=== PATIENT | female | born 1930 | race Caucasian/White ===

== ENCOUNTER 2017-03-30 10:07 | Emergency (ER) | payer MEDICARE, OTHER ==
[~2017-03-30] VITALS: Ht 177.8 cm; Wt 92.0 kg
[~2017-03-30 10:07] MED LIST: AMLO2.5T PO; BENZ100 PO; CETI10 PO; ERGO2000 PO; MEDOXOMIL; METF1000 PO; NEXI40CA PO; ROPI2TAB; ZITH250T PO
[2017-03-30 10:14] VITALS: BP 180/78; PULSE 88; RESP 18; TEMP 98.2; O2SAT 95
--- NOTE | 2017-03-30 10:37 | PD ---
HPI Chief Complaint: Cold / Flu Symptoms Time Seen by Provider: 10:20 Travel History International Travel<30 days: No Contact w/Intl Traveler<30days: No Traveled to known affect area: No History of Present Illness HPI This 86-year-old female is complaining of cough. She says she been coughing for the past 2 weeks. She was bringing up some green phlegm she is yellow phlegm. She has had pneumonia in the past. She stopped smoking 34 years ago. She has been short of breath. She is on medication for hypertension and diabetes. She thinks it's and they'll fill if she takes 20 years ago she had breast cancer that was treated with chemotherapy and surgery. Her son is with her and says that he noted she was wheezing the other day. She is not aware of any fever. PFSH Past Medical History Hx Anticoagulant Therapy: No Cancer: Yes (left breast) Cardiovascular Problems: Yes (HTN) High Cholesterol: Yes Diabetes: Yes (TYPE 2 ) Diminished Hearing: No Hypertension: Yes ?: Not Past Surgical History Tonsillectomy: Yes Other Surgery: Yes (left mastectomy) Social History Alcohol Use: Yes (occ) Tobacco Use: No Substance Use: No Allergies-Medications (Allergen,Severity, Reaction): Coded Allergies: No Known Allergies (Verified Adverse Reaction, Unknown, 03/30/17) Reported Meds & Prescriptions Reported Meds & Active Scripts Active Review of Systems General / Constitutional: No: Fever, Chills Eyes: No: Diploplia, Blurred Vision HENT: No: Headaches Cardiovascular: No: Chest Pain or Discomfort, Palpitations Respiratory: Positive: Cough, Shortness of Breath, Wheezing Gastrointestinal: No: Vomiting Genitourinary: No: Urgency, Frequency Skin: No Rash Neurologic: Positive: Weakness Physical Exam Narrative GENERAL: He developed female SKIN: Focused skin assessment warm/dry. HEAD: Atraumatic. Normocephalic. EYES: Pupils equal and round. No scleral icterus. No injection or drainage. ENT: No nasal bleeding or discharge. Mucous membranes pink and moist. NECK: Trachea midline. No JVD. CARDIOVASCULAR: Regular rate and rhythm. No murmur appreciated. RESPIRATORY: No accessory muscle use. There are some scattered bilateral wheezes. Breath sounds equal bilaterally. GASTROINTESTINAL: Abdomen soft, non-tender, nondistended. Hepatic and splenic margins not palpable. MUSCULOSKELETAL: No obvious deformities. No clubbing. No cyanosis. No edema. NEUROLOGICAL: Awake and alert. No obvious cranial nerve deficits. Motor grossly within normal limits. Normal speech. PSYCHIATRIC: Appropriate mood and affect; insight and judgment normal. Data Data Last Documented VS Vital Signs Date Time Temp Pulse Resp B/P (MAP) Pulse Ox O2 Delivery O2 Flow Rate FiO2 03/30/17 11:30 84 16 159/83 (108) 96 Room Air 03/30/17 10:49 95 03/30/17 10:14 98.2 Orders Orders Complete Blood Count With Diff (03/30/17 10:31) Basic Metabolic Panel (Bmp) (03/30/17 10:31) Urinalysis - C+S If Indicated (03/30/17 10:31) Thyroid Stimulating Hormone (03/30/17 10:31) Chest, Pa & Lat (03/30/17 10:31) Albuterol-Ipratropium Neb (Duoneb Neb) (03/30/17 10:45) Methylprednisolone So Succ Inj (Solumedr (03/30/17 11:15) Albuterol-Ipratropium Neb (Duoneb Neb) (03/30/17 11:15) Labs Laboratory Tests Test 03/30/17 11:05 03/30/17 11:20 White Blood Count 8.6 TH/MM3 Red Blood Count 3.92 MIL/MM3 Hemoglobin 10.9 GM/DL Hematocrit 33.8 % Mean Corpuscular Volume 86.3 FL Mean Corpuscular Hemoglobin 27.9 PG Mean Corpuscular Hemoglobin Concent 32.4 % Red Cell Distribution Width 13.1 % Platelet Count 376 TH/MM3 Mean Platelet Volume 7.9 FL Neutrophils (%) (Auto) 74.6 % Lymphocytes (%) (Auto) 11.9 % Monocytes (%) (Auto) 9.2 % Eosinophils (%) (Auto) 2.0 % Basophils (%) (Auto) 2.3 % Neutrophils # (Auto) 6.4 TH/MM3 Lymphocytes # (Auto) 1.0 TH/MM3 Monocytes # (Auto) 0.8 TH/MM3 Eosinophils # (Auto) 0.2 TH/MM3 Basophils # (Auto) 0.2 TH/MM3 CBC Comment DIFF FINAL Differential Comment Blood Urea Nitrogen 29 MG/DL Creatinine 1.60 MG/DL Random Glucose 98 MG/DL Calcium Level 8.5 MG/DL Sodium Level 137 MEQ/L Potassium Level 5.0 MEQ/L Chloride Level 102 MEQ/L Carbon Dioxide Level 25.7 MEQ/L Anion Gap 9 MEQ/L Estimat Glomerular Filtration Rate 31 ML/MIN Thyroid Stimulating Hormone 3rd Gen 1.670 uIU/ML Urine Collection Type CLEAN CATCH Urine Color YELLOW Urine Turbidity CLEAR Urine pH 5.5 Urine Specific [place] 1.019 Urine Protein 100 mg/dL Urine Glucose (UA) NEG mg/dL Urine Ketones TRACE mg/dL Urine Occult Blood NEG Urine Nitrite NEG Urine Bilirubin NEG Urine Leukocyte Esterase NEG Urine WBC 0-2 /hpf Urine Squamous Epithelial Cells 0-5 /hpf Microscopic Urinalysis Comment CULT NOT INDICATED MDM Medical Decision Making Medical Screen Exam Complete: Yes Emergency Medical Condition: Yes Medical Record Reviewed: Yes Differential Diagnosis Differential includes COPD, pneumonia, CHF Narrative Course X-ray shows some increased interstitial markings. There is no lobar infiltrate. Patient has been given several nebulizer treatments with some improvement. I believe this represents COPD exacerbation. Diagnosis Primary Impression: COPD exacerbation Scripts Albuterol 18 GM Inh (Ventolin Hfa 18 GM Inh) 90 Mcg/Act Aer 2 PUFF INH Q4H Y for SHORTNESS OF BREATH, #1 INHALER 0 Refills Prov: Brett Newman MD 03/30/17 Methylprednisolone Dosepak (Medrol Dosepak) 4 Mg Dspk 4 MG PO DIRECTED, #1 DSPK 0 Refills Per Pharmacist direction Prov: Brett Newman MD 03/30/17 Amoxicillin (Amoxicillin) 500 Mg Cap 500 MG PO TID for Infection for 10 Days, CAP 0 Refills Prov: Brett Newman MD 03/30/17 Disposition: 01 DISCHARGE HOME Condition: Stable Brett Newman MD Mar 30, 2017 10:37
[2017-03-30] MEDS ORDERED: RESP: ALBUTEROL 2.5 MG/IPRATROPIUM 0.5 MG NEB (SCH) NEB ONE ×2 (10:45→11:15)
[2017-03-30] MEDS ORDERED: methylPREDNISolone SOD SUCC 125 MG/2 ML VIAL IV PUSH ONE (11:15)
[2017-03-30 11:23] LABS: AUTOMATED NEUTROPHIL # 6.4 TH/MM3 (1.8-7.7); BASOPHIL # 0.2 TH/MM3 (0-0.2); BASOPHIL % 2.3 % (0.0-2.0); EOSINOPHIL # 0.2 TH/MM3 (0-0.4); HEMATOCRIT 33.8 % (35.0-46.0); HEMO FLAGS DIFF FINAL; LYMPH % 11.9 % (9.0-44.0); MEAN CELL VOLUME 86.3 FL (80.0-100.0); MEAN CORPUSCULAR HEMOGLOBIN 27.9 PG (27.0-34.0); MEAN CORPUSCULAR HGB CONC 32.4 % (32.0-36.0); MONO % 9.2 % (0.0-8.0); NEUT % 74.6 % (16.0-70.0); PLATELET COUNT 376 TH/MM3 (150-450); RED BLOOD COUNT 3.92 MIL/MM3 (4.00-5.30); RED CELL DISTRIBUTION WIDTH 13.1 % (11.6-17.2); WHITE BLOOD COUNT 8.6 TH/MM3 (4.0-11.0)
[2017-03-30 11:30] VITALS: BP 159/83; PULSE 84; RESP 16; O2SAT 96
[2017-03-30 11:33] LABS: BLOOD, URINE NEG (NEG); GLUCOSE,URINE NEG (NEG); KETONE, URINE TRACE mg/dL (NEG); NITRITE,URINE NEG (NEG); PH, URINE 5.5 (5.0-8.5)
--- NOTE | 2017-03-30 11:37 | RADRPT ---
EXAM DATE/TIME: 03/30/2017 10:48 [facility] COMPARISON: CHEST PA & LAT, April 28, 2012, 17:18. INDICATIONS : Cough, short of breath. MEDICAL HISTORY : Carcinoma, breast. SURGICAL HISTORY : Mastectomy, left. ENCOUNTER: Initial ACUITY: 2 weeks PAIN SCORE: 0/10 LOCATION: Bilateral chest FINDINGS: PA and lateral views of the chest were obtained and demonstrate diffuse mild interstitial opacities w hich are more prominent than on the prior study. There is no new focal consolidation or effusion. The heart and mediastinal structures remain within normal limits. The patient is again noted to be statu s post left mastectomy and axillary dissection. The bony thorax is otherwise intact. Atherosclerotic changes are again noted in the aorta with calcification. CONCLUSION: 1. Diffuse interstitial opacities which are mildly increased from the prior study. This likely repres ents scarring and fibrosis. 2. No focal consolidation. 3. Status post left mastectomy and axillary dissection. Reggie Willis MD on March 30, 2017 at 11:34 Board Certified Radiologist. This report was verified electronically.
[2017-03-30 11:39] LABS: COMMENT (UR) CULT NOT INDICATED; CULTURE IF INDICATED CULT NOT INDICATED; METHOD OF COLLECTION CLEAN CATCH; SQUAMOUS EPITHELIAL CELL URINE 0-5 /hpf (0-5); URINE COLOR YELLOW (YELLW/STRAW); WBC, URINE 0-2 /hpf (0-5)
[2017-03-30 11:41] LABS: BICARBONATE 25.7 MEQ/L (21.0-32.0)
[2017-03-30] MEDS ORDERED: CETI10 PO (11:59)
[2017-03-30] MEDS ORDERED: AMLO5TAB2 PO (11:59)
[2017-03-30] MEDS ORDERED: VITA400T14 PO (11:59)
[2017-03-30] MEDS ORDERED: ROPI2TAB PO (11:59)
[2017-03-30] MEDS ORDERED: METF500T PO (11:59)
[2017-03-30] MEDS ORDERED: NEXI40CA PO (11:59)
[2017-03-30] MEDS ORDERED: VENTAER INH (12:03)
[2017-03-30] MEDS ORDERED: AMOX500C PO (12:03)
[2017-03-30] MEDS ORDERED: MEDR4PAK PO (12:03)
[2017-03-30 12:38] VITALS: BP 207/79
== END 2017-03-30 12:45 | disposition home or self-care (01) ==
LOC: PHED 10:07
DX: J44.1 Chronic obstructive pulmonary disease with (acute) exacerbation (principal); I10 Essential (primary) hypertension; E11.9 Type 2 diabetes mellitus without complications; Z79.84 Long term (current) use of oral hypoglycemic drugs; Z87.891 Personal history of nicotine dependence
CPT/HCPCS: 71020; 80048; 81001; 84443; 85025; 94640; 94664; 96374; 99284; J2930

== ENCOUNTER 2018-01-30 09:05 | Inpatient (IN) ==
[2018-01-30] MEDS ORDERED: MethylPREDNISolone Sod Succinate Inj 125 MG/2 ML Vial IV.PUSH ONE (09:51)
[2018-01-30 10:13] LABS: Baso % (Auto) 0.2 % (0.0-2.0); Eos # (Auto) 0.4 th/mm3 (0.0-0.4); Hematocrit 33.7 % (35.0-46.0); Hemoglobin 11.8 gm/dL (11.6-15.3); Lymph # (Auto) 0.7 th/mm3 (1.0-4.8); Lymph % (Auto) 5.7 % (9.0-44.0); Mean Corpuscular HGB Conc 34.9 % (32.0-36.0); Mean Corpuscular Hemoglobin 30.8 pg (27.0-34.0); Mean Corpuscular Volume 88.2 fL (80.0-100.0); Mean Platelet Volume 7.8 fL (7.0-11.0); Mono # (Auto) 1.1 th/mm3 (0.0-0.9); Mono % (Auto) 8.8 % (0.0-8.0); Neut # (Auto) 10.5 th/mm3 (1.8-7.7); Neut % (Auto) 82.3 % (16.0-70.0); Platelet Count 287 th/mm3 (150-450); Red Blood Count 3.82 mil/mm3 (4.00-5.30); Red Cell Distribution Width 13.4 % (11.6-17.2); White Blood Count 12.7 th/mm3 (4.0-11.0)
[2018-01-30 10:25] LABS: Chloride 101 meq/L (98-107); Sodium 137 meq/L (136-145)
[2018-01-30] MEDS ORDERED: hydrALAZINE HCl Inj 20 MG/ML Vial IV.PUSH ONE (10:27)
--- NOTE | 2018-01-30 10:27 | XR ---
EXAM DATE: 01/30/2018 9:52 AM EDT AGE/SEX: 87 years / Female INDICATIONS: Cough. CLINICAL DATA: This is the patient's initial encounter. Patient reports that signs and symptoms have been present for 2 days and indicates a pain score of 0/10. MEDICAL/SURGICAL HISTORY: Hypertension. Diabetes. Carcinoma, breast. Tonsillectomy. Mastecto my, left. Total left hip replacement. COMPARISON: POI, XR CHEST PA AND LAT, 04/25/2017. . FINDINGS: A single AP view of the chest demonstrates the lungs to be symmetrically aerated without evidence of mass, infiltrate or effusion. The cardiomediastinal contours are unremarkable. The patient is statu s post left mastectomy. Degenerative changes are noted throughout the thoracic spine. CONCLUSION: No acute cardiopulmonary disease. Electronically signed by: Lacho Villa MD 01/30/2018 10:26 AM EDT
[2018-01-30 10:28] LABS: Calcium 8.6 mg/dL (8.5-10.1)
[2018-01-30 10:29] LABS: Albumin 3.9 g/dL (3.4-5.0); Anion Gap 8 meq/L (5-15); Blood Urea Nitrogen 24 mg/dL (7-18); Carbon Dioxide 27.7 meq/L (21.0-32.0); Glucose,Random 87 mg/dL (74-106)
[2018-01-30 10:32] LABS: Alanine Aminotransferase 20 U/L (10-53); Aspartate Aminotransferase 17 U/L (15-37); Glomerular Filtration Rate 39 mL/min (>89)
[2018-01-30 10:33] LABS: Total Protein 7.2 g/dL (6.4-8.2)
[2018-01-30 10:35] LABS: Alkaline Phosphatase 92 U/L (45-117)
--- NOTE | 2018-01-30 10:42 | ED ---
HPI General Chief Complaint: Respiratory Symptoms Stated Complaint: coughing up mucous Time Seen by Provider: 01/30/18 09:33 Source: patient History of Present Illness 87-year-old female with a past medical history of hypertension, diabetes, 30- year history of smoking presents to the emergency room complaining of shortness of breath, cough, nasal congestion, low-grade temperature and dyspnea on exertion. Patient reports getting similar symptoms 2-3 times a year for which she requires antibiotics. Patient denies chest pain, abdominal pain, back pain , nausea or vomiting. Patient is speaking full sentences and is in no apparent distress. Related Data Home Medications Medication Instructions Recorded Confirmed amlodipine 5 mg PO DAILY 01/30/18 01/30/18 azilsartan medoxomil [Edarbi] 40 mg PO DAILY 01/30/18 01/30/18 cyanocobalamin (vitamin B-12) 1,000 mcg IM QMONTH 01/30/18 01/30/18 ergocalciferol (vitamin D2) 50,000 unit PO QWEEK 01/30/18 01/30/18 [Vitamin D2] esomeprazole magnesium 40 mg PO HS 01/30/18 01/30/18 ezetimibe 10 mg PO BID 01/30/18 01/30/18 gabapentin 100 mg PO HS 01/30/18 01/30/18 hydrochlorothiazide 12.5 mg PO DAILY 01/30/18 01/30/18 metformin 500 mg PO QAM 01/30/18 01/30/18 mirabegron [Myrbetriq] 50 mg PO HS 01/30/18 01/30/18 montelukast 10 mg PO QAM 01/30/18 01/30/18 ropinirole 3 mg PO HS 01/30/18 01/30/18 Allergies Allergy/AdvReac Type Severity Reaction Status Date / Time No Known Allergies Allergy Verified 01/30/18 09:44 Review of Systems Constitutional Denies fever(s) Eyes Denies change in vision ENT Denies headache(s), Reports nasal congestion and Reports nasal discharge Cardiovascular Denies chest pain Respiratory Reports chest congestion, Reports cough, Reports dyspnea and Reports dyspnea on exertion Gastrointestinal Denies abdominal pain Genitourinary Denies difficulty voiding Musculoskeletal Denies myalgias Integumentary/Breasts Denies rash Neurologic Denies headache(s) Psychiatric Denies depression Endocrine Denies polyuria Hematologic/Lymphatic Denies easy bruising [facility] Medical History Medical History Diabetes 1.5, managed as type 2 (Acute) HTN (hypertension) (Acute) HX: breast cancer (Acute) Osteoarthritis (Acute) Surgical History Surgical History History of left hip replacement (Acute) Hx of left mastectomy (Acute) Hx of tonsillectomy (Acute) Family History Family History Other Osteoarthritis Social History Social History Substance History: No History of Abuse Second Hand Smoke Exposure: No Smoking Status: Former smoker Tobacco Type: Cigarettes How Often Do You Have a Drink Containing Alcohol: Monthly or less Recent Travel in [facility] within the Last 8 Weeks: No Recent Out of Country Travel within the Last 8 Weeks: No Immunization History Tetanus Immunization: Unsure Hx Influenza Vaccine This Season: No Exam Narrative Exam Narrative: GENERAL: Patient is alert and oriented -3 SKIN: Focused skin assessment warm/dry. HEAD: Atraumatic. Normocephalic. EYES: Pupils equal and round. No scleral icterus. No injection or drainage. ENT: No nasal bleeding or discharge. Mucous membranes pink and moist. NECK: Trachea midline. No JVD. CARDIOVASCULAR: Regular rate and rhythm. No murmur appreciated. RESPIRATORY: No accessory muscle use. Scattered rhonchi bilaterally with decreased air entry GASTROINTESTINAL: Abdomen soft, non-tender, nondistended. Hepatic and splenic margins not palpable. MUSCULOSKELETAL: No obvious deformities. No clubbing. No cyanosis. No edema. NEUROLOGICAL: Awake and alert. No obvious cranial nerve deficits. Motor grossly within normal limits. Normal speech. PSYCHIATRIC: Appropriate mood and affect; insight and judgment normal. Course Reevaluation(s) Reevaluation #1: Patient condition improved during the ER course however the patient requires more breathing treatments to control audible wheezing and shortness of breath. I personally reexamined and counseled the patient about her diagnosis and results. Time: 11:42 Initial Documented Vital Signs Temperature 99.3 F 01/30/18 09:18 Pulse Rate 94 H 01/30/18 09:18 Respiratory Rate 18 01/30/18 09:18 Blood Pressure 188/81 H 01/30/18 09:18 Pulse Oximetry 90 L 01/30/18 09:18 Last Documented Vital Signs Temperature 98.4 F 01/30/18 13:00 Pulse Rate 99 H 01/30/18 16:53 Respiratory Rate 24 01/30/18 16:53 Blood Pressure 160/67 H 01/30/18 13:00 Pulse Oximetry 92 L 01/30/18 13:00 Medical Decision Making MDM Narrative Medical Screen Exam Complete: Yes Emergency Medical Condition: Yes Lab Data Result diagrams: 01/30/18 10:02 01/30/18 10:02 Lab Results 01/30/18 01/30/18 01/30/18 Range/Units 10: 10: 12:26 CBC w Diff Auto diff final WBC 12.7 H (4.0-11.0) th/mm3 RBC 3.82 L (4.00-5.30) mil/mm3 Hgb 11.8 (11.6-15.3) gm/dL Hct 33.7 L (35.0-46.0) % MCV 88.2 (80.0-100.0) fL MCH 30.8 (27.0-34.0) pg MCHC 34.9 (32.0-36.0) % RDW 13.4 (11.6-17.2) % Plt Count 287 (150-450) th/mm3 MPV 7.8 (7.0-11.0) fL Neut % (Auto) 82.3 H (16.0-70.0) % Lymph % (Auto) 5.7 L (9.0-44.0) % [place] % (Auto) 8.8 H (0.0-8.0) % Eos % (Auto) 3.0 (0.0-4.0) % Baso % (Auto) 0.2 (0.0-2.0) % Neut # (Auto) 10.5 H (1.8-7.7) th/mm3 Lymph # (Auto) 0.7 L (1.0-4.8) th/mm3 [place] # (Auto) 1.1 H (0.0-0.9) th/mm3 Eos # (Auto) 0.4 (0.0-0.4) th/mm3 Baso # (Auto) 0.0 (0.0-0.2) th/mm3 WBC Differential . Differential Comment . Sodium 137 (136-145) meq/L Potassium 5.0 (3.5-5.1) meq/L Chloride 101 (98-107) meq/L Carbon Dioxide 27.7 (21.0-32.0) meq/L Anion Gap 8 (5-15) meq/L BUN 24 H (7-18) mg/dL Creatinine 1.30 H (0.50-1.00) mg/dL Estimated GFR 39 L (>89) mL/min POC Glucose 115 H (68-110) mg/dl Random Glucose 87 (74-106) mg/dL Calcium 8.6 (8.5-10.1) mg/dL Total Bilirubin 0.4 (0.2-1.0) mg/dL AST 17 (15-37) U/L ALT 20 (10-53) U/L Alkaline Phosphatase 92 (45-117) U/L Troponin I Less than 0.02 L (0.02-0.05) ng/mL Total Protein 7.2 (6.4-8.2) g/dL Albumin 3.9 (3.4-5.0) g/dL 01/30/18 Range/Units 16:43 CBC w Diff WBC (4.0-11.0) th/mm3 RBC (4.00-5.30) mil/mm3 Hgb (11.6-15.3) gm/dL Hct (35.0-46.0) % MCV (80.0-100.0) fL MCH (27.0-34.0) pg MCHC (32.0-36.0) % RDW (11.6-17.2) % Plt Count (150-450) th/mm3 MPV (7.0-11.0) fL Neut % (Auto) (16.0-70.0) % Lymph % (Auto) (9.0-44.0) % [place] % (Auto) (0.0-8.0) % Eos % (Auto) (0.0-4.0) % Baso % (Auto) (0.0-2.0) % Neut # (Auto) (1.8-7.7) th/mm3 Lymph # (Auto) (1.0-4.8) th/mm3 [place] # (Auto) (0.0-0.9) th/mm3 Eos # (Auto) (0.0-0.4) th/mm3 Baso # (Auto) (0.0-0.2) th/mm3 WBC Differential Differential Comment Sodium (136-145) meq/L Potassium (3.5-5.1) meq/L Chloride (98-107) meq/L Carbon Dioxide (21.0-32.0) meq/L Anion Gap (5-15) meq/L BUN (7-18) mg/dL Creatinine (0.50-1.00) mg/dL Estimated GFR (>89) mL/min POC Glucose 164 H (68-110) mg/dl Random Glucose (74-106) mg/dL Calcium (8.5-10.1) mg/dL Total Bilirubin (0.2-1.0) mg/dL AST (15-37) U/L ALT (10-53) U/L Alkaline Phosphatase (45-117) U/L Troponin I (0.02-0.05) ng/mL Total Protein (6.4-8.2) g/dL Albumin (3.4-5.0) g/dL Imaging Data Radiologist's impression: Chest X-Ray 01/30/18 09:52 CONCLUSION: No acute cardiopulmonary disease. Discharge Plan Discharge Disposition Patient Disposition: 30 Still Patient Discharge Condition Condition: Fair Discharge Details Diagnosis: Bronchitis, Acute exacerbation of chronic obstructive pulmonary disease (COPD) , Accelerated hypertension Physicians Team ED Provider: David Paredes Primary Care Provider: Melva Mauricio Attending Provider: Jamshid Robb Status ED Status: Left Department Discharge Information Discharge Date/Time: 01/30/18 12:17
[2018-01-30] MEDS ORDERED: Azithromycin Inj 500 MG in Sodium Chlor 0.9% Inj 250 ML IV.SIG ONE (11:20)
[2018-01-30] MEDS ORDERED: Dextrose 50% in Water 50 ML Vial IV.PUSH PRN (12:05)
--- NOTE | 2018-01-30 13:31 | P.HPIM ---
History of Present Illness Primary Care Physician: Melva Mauricio DO History of Present Illness: Mrs. Lancaster is an 87-year-old female. She has a past medical history of smoking with 30 pack years. She also has hypertension diabetes at baseline. Patient is not aware of COPD but she likely has COPD at baseline. She says for the past 10 years she has been having bronchitis approximately this time of the year and typically will end up in the emergency room. Previously she had been having breathing treatments and was discharged to go home from the emergency department. These were provided today and the patient did not have an adequate response so she is admitted due to persistent wheezing and dyspnea. Her oxygen saturations have been relatively low but not hypoxic. No fevers reported. No other complaints. - Diagnosis (1) Bronchitis (2) Acute exacerbation of chronic obstructive pulmonary disease (COPD) (3) Accelerated hypertension Inpatient Certification: I certify that the inpatient services were ordered in accordance with Medicare regulations governing the order. This includes certification that hospital inpatient services are reasonable and necessary and in the case of services not specified as inpatient-only under 42 CFR 419.22(n), that they are appropriately provided as inpatient services in accordance to with the 2-midnight benchmark under 43 CFR 412.3(e) Estimated Total Length of Stay (Days): 3 Plans for Post Hospital Care: Home Review of Systems Constitutional: No fevers, no chills no night sweats, no fatigue, no weakness Eyes: No eye pain, no blurry vision, no loss of vision ENT: No sore throat, no ear pain, no rhinorrhea Cardiovascular: No chest pain, no tachycardia, no palpitations, no shortness of breath, no syncope Respiratory: wheezing, cough, shortness of breath Gastrointestinal: No abdominal pain, no black tarry stools, no bright red blood per rectum, no vomiting, no diarrhea Musculoskeletal: No joint pain, no muscle cramps, no stiffness Integumentary: No rash, no ulcers, no drainage Neurologic: No sensory loss, no loss of motor function, no dizziness Psychiatric: No behavioral changes, no hallucinations, no suicidal ideations PMF - History History Provided By: Patient - Medical History Medical History: Medical History (Last Updated 01/30/18 @ 13:27 by Jamshid Robb MD) Diabetes 1.5, managed as type 2 HTN (hypertension) HX: breast cancer Osteoarthritis - Surgical History Surgical History: Surgical History (Last Reviewed 01/30/18 @ 10:41 by David Paredes) History of left hip replacement Hx of left mastectomy Hx of tonsillectomy - Tobacco History Second Hand Smoke Exposure: No Tobacco Use In Past 30 Days: No Smoking Status: Former smoker - Alcohol History How Often Do You Have a Drink Containing Alcohol: Monthly or less - Substance Use History Substance History: No History of Abuse - Travel History Recent Travel in the [place] Within the Last 8 Weeks: No Recent Travel Out of the Country Within the Last 8 Weeks: No - Immunization History Tetanus Immunization: Unsure Hx Influenza Vaccine This Season: No Medications and Allergies Active Medications: Active Medications Al Hydroxide/Mg Hydroxide (Milk Of sIrael Ji) 30 ml PO Q12H PRN PRN Reason: Mild Constipation Albuterol (Albuterol Neb (Prn)) 2.5 mg NEB Q2HR NEB PRN PRN Reason: SHORTNESS OF BREATH Albuterol (Duoneb Neb (Tigre)) 1 ampul NEB Q6HR WHILE AWAKE NEB TIGRE Last Admin: 01/30/18 13:05 Dose: 1 ampul Amlodipine Besylate (Norvasc) 5 mg PO DAILY TIGRE Clonidine HCl (Catapres) 0.1 mg PO Q6H PRN PRN Reason: SYS BP GREATER THAN 160 MMHG Cyanocobalamin (Vitamin B12 Inj) 1,000 mcg IM Q30D TIGRE Dextrose (D50w Vial) 50 ml IV.PUSH UNSCH PRN PRN Reason: PER HYPOGLYCEMIA PROTOCOL Ezetimibe (Zetia) 10 mg PO BID TIGRE Enalaprilat (Vasotec Inj) 1.25 mg IV.PUSH Q6H PRN PRN Reason: SBP>160, DBP>90 Ergocalciferol (Vitamin D2) 50,000 unit PO Q7D TIGRE Gabapentin (Neurontin) 100 mg PO HS TIGRE Glucagon (Glucagon Inj) 1 mg OTHER PRN PRN PRN Reason: for Hypoglycemia Protocol Heparin Sodium (Porcine) (Heparin Inj) 5,000 units SQ Q12H TIGRE Hydrochlorothiazide (Microzide) 12.5 mg PO DAILY TIGRE Azithromycin 500 mg/ Sodium (Chloride) 250 mls @ 250 mls/hr IV.SIG Q24H TIGRE Ceftriaxone Sodium 1,000 mg/ (Sodium Chloride) 100 mls @ 200 mls/hr IV.SIG Q24H TIGRE Insulin Aspart (Novolog Insulin Correctional Sugar Inj) 0 unit SQ ACHS TIGRE; Protocol Lactobacillus Acidophilus (Lactinex) 1 tab PO TID TIGRE Losartan Potassium (Cozaar) 50 mg PO DAILY TIGRE Montelukast Sodium (Singulair) 10 mg PO DAILY TIGRE Ondansetron HCl (Zofran Inj) 4 mg IV.PUSH Q6H PRN PRN Reason: NAUSEA OR VOMITING Pantoprazole Sodium (Protonix) 40 mg PO HS TIGRE Pt Own - Myrbetriq (50 Mg) 0 each PO HS TIGRE Prednisone (Deltasone) 40 mg PO BID TIGRE Ropinirole HCl (Requip) 3 mg PO HS TIGRE Sodium Chloride (Ns Flush) 2 ml IV.FLUSH BID TIGRE Sodium Chloride (Ns Flush) 2 ml IV.FLUSH PRN PRN PRN Reason: FLUSH AFTER USING IV ACCESS Allergies Allergy/AdvReac Type Severity Reaction Status Date / Time No Known Allergies Allergy Verified 01/30/18 09:44 Home Medications Medication Instructions Recorded Confirmed Type amlodipine 5 mg PO DAILY 01/30/18 01/30/18 History azilsartan medoxomil [Edarbi] 40 mg PO DAILY 01/30/18 01/30/18 History cyanocobalamin (vitamin B-12) 1,000 mcg IM QMONTH 01/30/18 01/30/18 History ergocalciferol (vitamin D2) 50,000 unit PO QWEEK 01/30/18 01/30/18 History [Vitamin D2] esomeprazole magnesium 40 mg PO HS 01/30/18 01/30/18 History ezetimibe 10 mg PO BID 01/30/18 01/30/18 History gabapentin 100 mg PO HS 01/30/18 01/30/18 History hydrochlorothiazide 12.5 mg PO DAILY 01/30/18 01/30/18 History metformin 500 mg PO QAM 01/30/18 01/30/18 History mirabegron [Myrbetriq] 50 mg PO HS 01/30/18 01/30/18 History montelukast 10 mg PO QAM 01/30/18 01/30/18 History ropinirole 3 mg PO HS 01/30/18 01/30/18 History Exam Vital signs: Vital Signs 01/30/18 09:18 01/30/18 09:35 01/30/18 10:12 Temperature 99.3 F Pulse Rate 94 H 95 H 89 Respiratory Rate 18 18 22 Blood Pressure 188/81 H 194/97 H Pulse Oximetry 90 L 92 L 01/30/18 10:47 01/30/18 13:00 01/30/18 13:06 Temperature 98.4 F Pulse Rate 87 100 H 100 H Respiratory Rate 18 18 20 Blood Pressure 170/67 H 160/67 H Pulse Oximetry 93 L 92 L Intake & Output 01/29/18 01/30/18 01/30/18 18:59 06:59 18:59 Intake Total 102 / 102 Balance 102 / 102 Weight 91.4 kg Intake: IV 102 / 102 Azithromycin Inj 500 MG In NS 2 / 2 Inj 250 ML @ 250 mls/hr IV.SIG ONCE ONE Rx#:[id number] Rocephin Inj 2,000 MG In NS Inj 100 / 100 100 ML @ 200 mls/hr IV.SIG ONCE ONE Rx#:[id number] Narrative: GENERAL: NAD, A&Ox3 HEAD: Normocephalic. NECK: Supple, trachea midline. No lymphadenopathy. EYES: No scleral icterus. No injection or drainage. CARDIOVASCULAR: Regular rate and rhythm without murmurs, gallops, or rubs. RESPIRATORY: Breath sounds equal bilaterally. No accessory muscle use. Bilateral rhonchi, bilateral wheezing, increased work of breathing. GASTROINTESTINAL: Abdomen soft, non-tender, nondistended. MUSCULOSKELETAL: No cyanosis, or edema. SKIN: Warm and dry. NEURO: No focal neurological deficits. Results - Labs CBC & Chem 7: 01/30/18 10:02 01/30/18 10:02 Labs: Short CBC 01/30/18 Range/Units 10:02 WBC 12.7 H (4.0-11.0) th/mm3 Hgb 11.8 (11.6-15.3) gm/dL Hct 33.7 L (35.0-46.0) % Plt Count 287 (150-450) th/mm3 BMP 01/30/18 10:02 Sodium 137 Potassium 5.0 Chloride 101 Carbon Dioxide 27.7 BUN 24 H Creatinine 1.30 H Calcium 8.6 Cardiac Enzymes 01/30/18 Range/Units 10:02 Troponin I Less than 0.02 L (0.02-0.05) ng/mL Liver Function 01/30/18 Range/Units 10:02 Total Bilirubin 0.4 (0.2-1.0) mg/dL AST 17 (15-37) U/L ALT 20 (10-53) U/L Alkaline Phosphatase 92 (45-117) U/L Albumin 3.9 (3.4-5.0) g/dL - Imaging Impressions Chest X-Ray 01/30/18 09:52 CONCLUSION: No acute cardiopulmonary disease. Caprini VTE Risk Assessment Caprini VTE Risk Assessment: No/Low Risk (score <= 1) Caprini Risk Assessment Model: Point Value = 1 Point Value = 2 Point Value = 3 Point Value = 5 Age 41-60 Minor surgery BMI > 25 kg/m2 Swollen legs Varicose veins or History of unexplained or recurrent spontaneous Oral contraceptives or hormone replacement Sepsis (< 1 month) Serious lung disease, including pneumonia (< 1 month) Abnormal pulmonary function Acute myocardial infarction Congestive heart failure (< 1 month) History of inflammatory bowel disease Medical patient at bed rest Age 61-74 Arthroscopic surgery Major open surgery (> 45 min) Laparoscopic surgery (> 45 min) Malignancy Confined to bed (> 72 hours) Immobilizing plaster cast Central venous access Age >= 75 History of VTE Family history of VTE Factor V Leiden Prothrombin [id number] Lupus anticoagulant Anticardiolipin antibodies Elevated serum homocysteine Heparin-induced thrombocytopenia Other congenital or acquired thrombophilia Stroke (< 1 month) Elective arthroplasty Hip, pelvis, or leg fracture Acute spinal cord injury (< 1 month) Prophylaxis Regimen: Total Risk Factor Score Risk Level Prophylaxis Regimen 0-1 Low Early ambulation 2 Moderate Order ONE of the following: *Sequential Compression Device (SCD) *Heparin 5000 units SQ BID 3-4 Higher Order ONE of the following medications: *Heparin 5000 units SQ TID *Enoxaparin/Lovenox 40 mg SQ daily (WT < 150 kg, CrCl > 30 mL/min) *Enoxaparin/Lovenox 30 mg SQ daily (WT < 150 kg, CrCl > 10-29 mL/min) *Enoxaparin/Lovenox 30 mg SQ BID (WT < 150 kg, CrCl > 30 mL/min) AND/OR *Sequential Compression Device (SCD) 5 or more Highest Order ONE of the following medications: *Heparin 5000 units SQ TID (Preferred with Epidurals) *Enoxaparin/Lovenox 40 mg SQ daily (WT < 150 kg, CrCl > 30 mL/min) *Enoxaparin/Lovenox 30 mg SQ daily (WT < 150 kg, CrCl > 10-29 mL/min) *Enoxaparin/Lovenox 30 mg SQ BID (WT < 150 kg, CrCl > 30 mL/min) AND *Sequential Compression Device (SCD) Assessment and Plan - Assessment (1) Bronchitis Code(s): J40 - Bronchitis, not specified as acute or chronic Status: Acute (2) Acute exacerbation of chronic obstructive pulmonary disease (COPD) Code(s): J44.1 - Chronic obstructive pulmonary disease with (acute) exacerbation Status: Acute (3) Accelerated hypertension Code(s): I10 - Essential (primary) hypertension Status: Acute - Plan 87-year-old female admitted secondary to COPD exacerbation with hypertensive urgency and bronchitis COPD exacerbation Bronchitis Continue oxygen supplements as needed Schedule duo nebs When necessary albuterol Azithromycin Systemic steroids Follow for improvement in respiratory status Follow for improvement in exertional tolerance next Hypertensive urgency As needed clonidine As needed IV enalapril Follow blood pressures Continue baseline treatments next Diabetes mellitus type 2 Follow blood sugars Insulin sliding scale Diabetic diet DVT prophylaxis Heparin
[2018-01-30] MEDS: Heparin - SQ 10,000 UNITS/ML Vial SQ SCH (13:46)
[2018-01-30] MEDS: Montelukast 10 MG Tablet PO SCH (13:46)
[2018-01-30] MEDS: Lactobacillus Acidophilus/L. Spores Tablet PO SCH ×2 (13:46→17:08)
[2018-01-30] MEDS ORDERED: Naproxen 250 MG Tablet PO ONE ×2 (15:30→23:08)
[2018-01-30] MEDS: Insulin NovoLOG Aspart Correctional Sugar Inj SQ SCH ×2 (16:51→21:44)
--- NOTE | 2018-01-30 17:15 | ECG ---
Date Performed: 01/30/2018 Time Performed: 10:09:34 PTAGE: 87 years EKG: Sinus rhythm NORMAL ECG PREVIOUS TRACING : 12/08/2008 18.46 Since the previous tracing, no significant change noted DOCTOR: Desean Wells Interpretating Date/Time 01/30/2018 17:11:26
--- NOTE | 2018-01-30 20:07 | P.PN ---
Subjective Interval history: NOT SEEN Physical Exam Vital signs: Vital Signs 01/30/18 09:18 01/30/18 09:35 01/30/18 10:12 Temperature 99.3 F Pulse Rate 94 H 95 H 89 Respiratory Rate 18 18 22 Blood Pressure 188/81 H 194/97 H Pulse Oximetry 90 L 92 L 01/30/18 10:47 01/30/18 13:00 01/30/18 13:06 Temperature 98.4 F Pulse Rate 87 100 H 100 H Respiratory Rate 18 18 20 Blood Pressure 170/67 H 160/67 H Pulse Oximetry 93 L 92 L 01/30/18 16:53 01/30/18 18:57 Temperature 99.3 F Pulse Rate 99 H 104 H Respiratory Rate 24 18 Blood Pressure 184/79 H Pulse Oximetry 92 L Intake & Output 01/30/18 01/30/18 01/31/18 06:59 18:59 06:59 Intake Total 352 / 352 Balance 352 / 352 Weight 91.4 kg Intake: IV 352 / 352 Azithromycin Inj 500 MG In NS 252 / 252 Inj 250 ML @ 250 mls/hr IV.SIG ONCE ONE Rx#:[id number] Rocephin Inj 2,000 MG In NS Inj 100 / 100 100 ML @ 200 mls/hr IV.SIG ONCE ONE Rx#:[id number] Other: # Voids 1 Narrative: GENERAL: NAD, A&Ox3 HEAD: Normocephalic. NECK: Supple, trachea midline. No lymphadenopathy. EYES: No scleral icterus. No injection or drainage. CARDIOVASCULAR: Regular rate and rhythm without murmurs, gallops, or rubs. RESPIRATORY: Breath sounds equal bilaterally. No accessory muscle use. Bilateral rhonchi, bilateral wheezing, increased work of breathing. GASTROINTESTINAL: Abdomen soft, non-tender, nondistended. MUSCULOSKELETAL: No cyanosis, or edema. SKIN: Warm and dry. NEURO: No focal neurological deficits. Results - Labs CBC & Chem 7: 01/30/18 10:02 01/30/18 10:02 Laboratory Results - last 24 hr 01/30/18 01/30/18 01/30/18 10:02 10:02 12:26 CBC w Diff Auto diff final WBC 12.7 H RBC 3.82 L Hgb 11.8 Hct 33.7 L MCV 88.2 MCH 30.8 MCHC 34.9 RDW 13.4 Plt Count 287 MPV 7.8 Neut % (Auto) 82.3 H Lymph % (Auto) 5.7 L Will % (Auto) 8.8 H Eos % (Auto) 3.0 Baso % (Auto) 0.2 Neut # (Auto) 10.5 H Lymph # (Auto) 0.7 L Will # (Auto) 1.1 H Eos # (Auto) 0.4 Baso # (Auto) 0.0 WBC Differential . Differential Comment . Sodium 137 Potassium 5.0 Chloride 101 Carbon Dioxide 27.7 Anion Gap 8 BUN 24 H Creatinine 1.30 H Estimated GFR 39 L POC Glucose 115 H Random Glucose 87 Calcium 8.6 Total Bilirubin 0.4 AST 17 ALT 20 Alkaline Phosphatase 92 Troponin I Less than 0.02 L Total Protein 7.2 Albumin 3.9 01/30/18 16:43 CBC w Diff WBC RBC Hgb Hct MCV MCH MCHC RDW Plt Count MPV Neut % (Auto) Lymph % (Auto) Will % (Auto) Eos % (Auto) Baso % (Auto) Neut # (Auto) Lymph # (Auto) Will # (Auto) Eos # (Auto) Baso # (Auto) WBC Differential Differential Comment Sodium Potassium Chloride Carbon Dioxide Anion Gap BUN Creatinine Estimated GFR POC Glucose 164 H Random Glucose Calcium Total Bilirubin AST ALT Alkaline Phosphatase Troponin I Total Protein Albumin Microbiology 01/30/18 10:02 Nasal Aspirate Influenza Types A,B Antigen - Final Negative for FLU A and B antigen Infection due to influenza A or B cannot be ruled out since the antigen present in the sample may be below the detection limit of the test. - Imaging Impressions Chest X-Ray 01/30/18 09:52 CONCLUSION: No acute cardiopulmonary disease. - Procedures none Assessment and Plan - Assessment (1) Bronchitis Code(s): J40 - Bronchitis, not specified as acute or chronic Status: Acute (2) Acute exacerbation of chronic obstructive pulmonary disease (COPD) Code(s): J44.1 - Chronic obstructive pulmonary disease with (acute) exacerbation Status: Acute (3) Accelerated hypertension Code(s): I10 - Essential (primary) hypertension Status: Acute - Plan 87-year-old female admitted secondary to COPD exacerbation with hypertensive urgency and bronchitis COPD exacerbation Bronchitis Continue oxygen supplements as needed Schedule duo nebs When necessary albuterol Azithromycin Systemic steroids Follow for improvement in respiratory status Follow for improvement in exertional tolerance Hypertensive urgency As needed clonidine As needed IV enalapril Follow blood pressures Continue baseline treatments next Diabetes mellitus type 2 Follow blood sugars Insulin sliding scale Diabetic diet DVT prophylaxis Heparin
[2018-01-30] MEDS ORDERED: Gabapentin 100 MG Capsule PO SCH (21:00)
[2018-01-30] MEDS ORDERED: MYRBETRIQ 50 MG PO SCH (21:00)
[2018-01-30] MEDS: Ezetimibe 10 MG Tablet PO SCH (21:38)
[2018-01-30] MEDS: predniSONE 20 MG Tablet PO SCH (21:39)
[2018-01-30] MEDS ORDERED: Acetaminophen 325 MG Tablet PO PRN (23:07)
[2018-01-30] MEDS ORDERED: Melatonin 5 MG Tablet PO ONE (23:10)
[2018-01-31] MEDS: Heparin - SQ 10,000 UNITS/ML Vial SQ SCH (01:47)
[2018-01-31 06:57] LABS: Baso % (Auto) 0.1 % (0.0-2.0); Eos % (Auto) 0.1 % (0.0-4.0); Hematocrit 31.7 % (35.0-46.0); Hemoglobin 10.6 gm/dL (11.6-15.3); Lymph # (Auto) 0.5 th/mm3 (1.0-4.8); Lymph % (Auto) 4.2 % (9.0-44.0); Mean Corpuscular HGB Conc 33.4 % (32.0-36.0); Mean Corpuscular Hemoglobin 30.1 pg (27.0-34.0); Mean Corpuscular Volume 90.4 fL (80.0-100.0); Mean Platelet Volume 8.6 fL (7.0-11.0); Mono # (Auto) 0.3 th/mm3 (0.0-0.9); Neut # (Auto) 11.7 th/mm3 (1.8-7.7); Neut % (Auto) 93.6 % (16.0-70.0); Platelet Count 271 th/mm3 (150-450); Red Blood Count 3.51 mil/mm3 (4.00-5.30); Red Cell Distribution Width 12.8 % (11.6-17.2); White Blood Count 12.5 th/mm3 (4.0-11.0)
[2018-01-31 06:58] LABS: Chloride 99 meq/L (98-107); Potassium 4.9 meq/L (3.5-5.1); Sodium 132 meq/L (136-145)
[2018-01-31 07:04] LABS: Calcium 8.1 mg/dL (8.5-10.1)
[2018-01-31 07:05] LABS: Albumin 3.6 g/dL (3.4-5.0); Anion Gap 10 meq/L (5-15); Blood Urea Nitrogen 31 mg/dL (7-18); Carbon Dioxide 23.1 meq/L (21.0-32.0); Glucose,Random 139 mg/dL (74-106)
[2018-01-31 07:07] LABS: Alanine Aminotransferase 18 U/L (10-53); Aspartate Aminotransferase 18 U/L (15-37); Glomerular Filtration Rate 39 mL/min (>89)
[2018-01-31 07:08] LABS: Total Protein 6.6 g/dL (6.4-8.2)
[2018-01-31 07:10] LABS: Alkaline Phosphatase 74 U/L (45-117)
[2018-01-31] MEDS: Insulin NovoLOG Aspart Correctional Sugar Inj SQ SCH (07:43)
[2018-01-31 08:10] VITALS: BP 131/69; PULSE 93; RESP 18; TEMP 96.4; O2SAT 93
[2018-01-31] MEDS: Montelukast 10 MG Tablet PO SCH (08:26)
[2018-01-31] MEDS: predniSONE 20 MG Tablet PO SCH (08:28)
[2018-01-31] MEDS: Lactobacillus Acidophilus/L. Spores Tablet PO SCH (08:28)
[2018-01-31] MEDS: Ezetimibe 10 MG Tablet PO SCH (08:28)
[2018-01-31] MEDS ORDERED: amLODIPine 5 MG Tablet PO SCH (09:00)
--- NOTE | 2018-01-31 11:13 | P.PN ---
Subjective Interval history: Follow-up COPD exacerbation and acute bronchitis. States she is feeling much better ambulating on room air denies shortness of breath and wheezing. Wants to see a [facility] outpatient. Recommended to undergo pulmonary function test. Physical Exam Vital signs: Vital Signs 01/30/18 13:00 01/30/18 13:06 01/30/18 16:53 Temperature 98.4 F Pulse Rate 100 H 100 H 99 H Respiratory Rate 18 20 24 Blood Pressure 160/67 H Pulse Oximetry 92 L 01/30/18 18:57 01/30/18 19:18 01/30/18 20:00 Temperature 99.3 F 97.8 F Pulse Rate 104 H 100 H 101 H Respiratory Rate 18 20 16 Blood Pressure 184/79 H 190/79 H Pulse Oximetry 92 L 92 L 01/31/18 00:00 01/31/18 08:00 Temperature 97.2 F L 96.4 F L Pulse Rate 89 93 H Respiratory Rate 16 18 Blood Pressure 146/67 H 131/69 Pulse Oximetry 92 L 93 L Intake & Output 01/30/18 01/31/18 01/31/18 18:59 06:59 18:59 Intake Total 352 / 352 200 / 200 Balance 352 / 352 200 / 200 Weight 91.4 kg 91.4 kg Intake: IV 352 / 352 Azithromycin Inj 500 MG In NS 252 / 252 Inj 250 ML @ 250 mls/hr IV.SIG ONCE ONE Rx#:[id number] Rocephin Inj 2,000 MG In NS Inj 100 / 100 100 ML @ 200 mls/hr IV.SIG ONCE ONE Rx#:[id number] Oral 200 / 200 Other: # Voids 3 Date of Last Bowel Movement 01/30/18 Narrative: GENERAL: NAD, A&Ox3 CARDIOVASCULAR: Regular rate and rhythm RESPIRATORY: Breath sounds equal bilaterally. No accessory muscle use. Clear lungs no wheezing GASTROINTESTINAL: Abdomen soft, non-tender, nondistended. MUSCULOSKELETAL: No cyanosis, or edema. SKIN: Warm and dry. NEURO: No focal neurological deficits. Results - Labs CBC & Chem 7: 01/31/18 05:45 01/31/18 05:45 Laboratory Results - last 24 hr 01/30/18 01/30/18 01/30/18 12:26 16:43 20:32 CBC w Diff WBC RBC Hgb Hct MCV MCH MCHC RDW Plt Count MPV Neut % (Auto) Lymph % (Auto) Pettis % (Auto) Eos % (Auto) Baso % (Auto) Neut # (Auto) Lymph # (Auto) [place] # (Auto) Eos # (Auto) Baso # (Auto) WBC Differential Differential Comment Sodium Potassium Chloride Carbon Dioxide Anion Gap BUN Creatinine Estimated GFR POC Glucose 115 H 164 H 142 H Random Glucose Calcium Total Bilirubin AST ALT Alkaline Phosphatase Total Protein Albumin 01/31/18 01/31/18 01/31/18 05:45 05:45 07:38 CBC w Diff Auto diff final WBC 12.5 H RBC 3.51 L Hgb 10.6 L Hct 31.7 L MCV 90.4 MCH 30.1 MCHC 33.4 RDW 12.8 Plt Count 271 MPV 8.6 Neut % (Auto) 93.6 H Lymph % (Auto) 4.2 L [place]ett[place] % (Auto) 2.0 Eos % (Auto) 0.1 Baso % (Auto) 0.1 Neut # (Auto) 11.7 H Lymph # (Auto) 0.5 L Pettis # (Auto) 0.3 Eos # (Auto) 0.0 Baso # (Auto) 0.0 WBC Differential . Differential Comment . Sodium 132 L Potassium 4.9 Chloride 99 Carbon Dioxide 23.1 Anion Gap 10 BUN 31 H Creatinine 1.30 H Estimated GFR 39 L POC Glucose 133 H Random Glucose 139 H Calcium 8.1 L Total Bilirubin 0.3 AST 18 ALT 18 Alkaline Phosphatase 74 Total Protein 6.6 D Albumin 3.6 Microbiology 01/30/18 11:23 Blood - Peripheral Aerobic Blood Culture - Preliminary No growth in 1 day 01/30/18 11:23 Blood - Peripheral Anaerobic Blood Culture - Preliminary No growth in 1 day 01/30/18 11:25 Blood - Peripheral Aerobic Blood Culture - Preliminary No growth in 1 day 01/30/18 11:25 Blood - Peripheral Anaerobic Blood Culture - Preliminary No growth in 1 day 01/30/18 10:02 Nasal Aspirate Influenza Types A,B Antigen - Final Negative for FLU A and B antigen Infection due to influenza A or B cannot be ruled out since the antigen present in the sample may be below the detection limit of the test. - Imaging ITS Impressions Chest X-Ray 01/30/18 09:52 CONCLUSION: No acute cardiopulmonary disease. - Procedures none Assessment and Plan - Assessment (1) Bronchitis Code(s): J40 - Bronchitis, not specified as acute or chronic Status: Acute (2) Acute exacerbation of chronic obstructive pulmonary disease (COPD) Code(s): J44.1 - Chronic obstructive pulmonary disease with (acute) exacerbation Status: Acute (3) Accelerated hypertension Code(s): I10 - Essential (primary) hypertension Status: Acute - Plan 87-year-old female admitted secondary to COPD exacerbation with hypertensive urgency and bronchitis COPD exacerbation Bronchitis Clinically improved continue beta agonists, azithromycin, prednisone and oxygen as needed. Needs outpatient pulmonary function test. Tobacco cessation quit 30 years ago Hypertensive urgency. Resolved As needed clonidine As needed IV enalapril Follow blood pressures Continue baseline treatments next Diabetes mellitus type 2 Follow blood sugars Insulin sliding scale Diabetic diet Metformin discontinued secondary to chronic kidney disease stage III. DVT prophylaxis Heparin Discharge Planning: Discharge patient to home Condition on discharge: Improved Regular Diet as tolerated Ad Leslie activity Rx written: Prednisone, azithromycin, Combivent and probiotic Follow-up with primary care physician and pulmonary
[2018-01-31] MEDS ORDERED: Azithromycin Inj 500 MG in Sodium Chlor 0.9% Inj 250 ML IV.SIG SCH (12:00)
[2018-02-11] MEDS ORDERED: Naproxen 250 MG Tablet PO PRN (03:00)
== END 2018-01-31 13:01 | disposition home or self-care (01) ==
LOC: PHED 09:05 → PHEDA 11:40 → PH3 12:11
PROVIDERS: ADMIT Internal Medicine; ATTEND Internal Medicine